=== PATIENT | male | born 2000 | race Caucasian/White ===

== ENCOUNTER 2018-02-01 17:25 | Emergency (ER) | payer MEDICAID ==
[~2018-02-01] VITALS: Ht 180.3 cm; Wt 72.6 kg
[2018-02-01 17:29] VITALS: BP 127/76
--- NOTE | 2018-02-01 17:38 | NUR ---
Patient ambulated to bed 3. RN evaluating patient at bedside.
--- NOTE | 2018-02-01 17:40 | NUR ---
17 YO M BIB MOTHER, WITHDRAWING OFF HEROIN. LAST USED 2 OR 3 DAYS AGO. WANTS TO MAKE SURE RIGHT ARM INJECTION SITE IS NOT INFECTED, PT MISSED THE VEIN WHILE INJECTING. BODY ACHES, SWEATS, N/V. 10/10 PAIN ACHING ALL OVER BODY. WILL CONTINUE TO MONITOR. MOTHER AT BEDSIDE. VSS . SAFETY PRECAUTIONS INITIATED.
[2018-02-01 18:03] VITALS: BP 127/76
--- NOTE | 2018-02-01 18:03 | NUR ---
Patient discharged with v/s stable. Written and verbal after care instructions given and explained. Patient alert, oriented and verbalized understanding of instructions. Ambulatory with steady gait. All questions addressed prior to discharge. ID band removed. Patient advised to follow up with PMD. Rx of KETOROLAC given. Patient educated on indication of medication including possible reaction and side effects. Opportunity to ask questions provided and answered.
== END 2018-02-01 18:03 | disposition home or self-care (01) ==
LOC: MED 17:25
DX: F19.11 Other psychoactive substance abuse, in remission (principal); Z88.1 Allergy status to other antibiotic agents
CPT/HCPCS: 99283

== ENCOUNTER 2018-10-16 17:52 | Emergency (ER) | payer MEDICAID ==
[~2018-10-16] VITALS: Ht 182.9 cm; Wt 79.6 kg
[2018-10-16 18:10] VITALS: BP 129/83
[2018-10-16] MEDS ORDERED: NEOMYCIN/POLYMYXIN/BACITRACIN 0.9 GM/1 PKT TP ONE (18:30)
[2018-10-16] MEDS ORDERED: CLINDAMYCIN 600 MG/4 ML VIAL IM ONE (18:30)
--- NOTE | 2018-10-16 18:55 | NUR ---
C/O ABCESS LIKE BUMP TO L WRIST X4 WEEKS. PT REPORTS IV HEROIN USE, STATES HE THINKS HE "MISSED" AND THATS WHAT CAUSED THE BUMP. DENIES N/V/D/FEVER. L WRIST HAS A REDDENED/SWOLLEN ABCESS LIKE BUMP. BED IN LOW POSITION, SIDE RAIL UP X1
[2018-10-16 19:20] VITALS: BP 125/86
--- NOTE | 2018-10-16 19:20 | NUR ---
Patient discharged with v/s stable. Written and verbal after care instructions given and explained. Patient alert, oriented and verbalized understanding of instructions. Ambulatory with steady gait. All questions addressed prior to discharge. ID band removed. Patient advised to follow up with PMD. Rx of CLINDAMYCIN, BACTRIM given. Patient educated on indication of medication including possible reaction and side effects. Opportunity to ask questions provided and answered.
== END 2018-10-16 19:20 | disposition home or self-care (01) ==
LOC: MED 17:52
DX: L02.414 Cutaneous abscess of left upper limb (principal); F11.10 Opioid abuse, uncomplicated; Z88.1 Allergy status to other antibiotic agents
CPT/HCPCS: 96372; 99283; J3490

== ENCOUNTER 2018-10-22 17:56 | Emergency (ER) | payer MEDICAID ==
[~2018-10-22] VITALS: Ht 180.3 cm; Wt 78.9 kg
[2018-10-22 18:08] VITALS: BP 119/71
--- NOTE | 2018-10-22 18:14 | NUR ---
PT AMBULATED TO ER BED 10
[2018-10-22 18:22] VITALS: BP 119/71
--- NOTE | 2018-10-22 18:25 | NUR ---
PT TO ED WITH C/O LEFT WRIST ABSCESS X 1 MONTH. PT REPORTS IV HEROIN ABUSE AND POSSIBLY MISSING A VEIN. PT SEEN IN ED X 6 DAYS AGO FOR SAME ISSUE GIVEN RX ABX WITH NO RELIEF. NO DRAINAGE FROM SITE. SITE IS REDDENED. PT PLACED INTO BED, PENDING MD FLANNERY.
--- NOTE | 2018-10-22 19:17 | NUR ---
RECEIVED REPORT FROM ROMA CANDELARIO.
--- NOTE | 2018-10-22 19:28 | NUR ---
PT STATES HE IS LEAVING BECAUSE HE HAS TO BE AT WORK THIS EVENING. PT LWBS. DR. DAUGHERTY MADE AWARE.
== END 2018-10-22 19:28 | disposition left against medical advice (07) ==
LOC: MED 17:56
DX: L02.414 Cutaneous abscess of left upper limb (principal); Z53.21 Procedure and treatment not carried out due to patient leaving prior to being seen by health care provider

== ENCOUNTER 2019-05-22 04:06 | Emergency (ER) | payer MEDICAID, OTHER ==
[~2019-05-22] VITALS: Ht 182.9 cm; Wt 78.1 kg
[2019-05-22 04:16] VITALS: BP 134/76
--- NOTE | 2019-05-22 04:30 | NUR ---
18 Y/O MALE PRESENTS TO ED, C/O RIGHT RING FINGER PAIN 01/19. PT STATES INJECTING HEROIN ON RIGHT RING FINGER THAT CAUSED ABSCESS. PT STATES HAVING DRAINAGE ON ABSCESS; NO DRAINAGE NOTED DURING ASSESSMENT. PT IS AFEBRILE. NO MEDICATION TAKEN PRIOR COMING TO ED. PT VSS. ERMD AWARE. WILL CONTINUE TO MONITOR.
[2019-05-22] MEDS ORDERED: SULFAMETH/TRIMETH DS 800/160MG 1 TAB PO ONE (04:35)
[2019-05-22] MEDS ORDERED: CEPHALEXIN 500 MG CAP PO ONE (04:35)
[2019-05-22 05:45] VITALS: BP 134/76
--- NOTE | 2019-05-22 05:45 | NUR ---
PT DISCHARGED WITH PAPERWORK. EDUCATED PT REGARDING MEDICATIONS AND D/C INSTRUCTIONS. PT VERBALIZED UNDERSTANDING OF TEACHING. TOLD PT TO FOLLOW UP WITH PCP AND WHEN TO RETURN TO ED. PT AT STABLE CONDITION. ALL QUESTIONS ANSWERED.
== END 2019-05-22 05:45 | disposition home or self-care (01) ==
LOC: MED 04:06
DX: L03.011 Cellulitis of right finger (principal); I10 Essential (primary) hypertension; Z88.0 Allergy status to penicillin; Z88.1 Allergy status to other antibiotic agents
CPT/HCPCS: 99283

== ENCOUNTER 2019-09-04 00:46 | Emergency (ER) | payer MEDICAID, OTHER ==
[~2019-09-04] VITALS: Ht 180.3 cm; Wt 74.8 kg
[2019-09-04 00:51] VITALS: BP 127/88
--- NOTE | 2019-09-04 00:58 | NUR ---
PT AMBULATED TO BED #4
--- NOTE | 2019-09-04 01:18 | NUR ---
RECEVIED A 18/M FROM TRIAGE WITH C/O BILATERAL ABSCESSES TO ARMS SECONDARY TO HEROIN USE. RED, RAISED AREAS OF SKIN NOTED WITH BLACK-COLORED TISSUE. DR RITCHIE AWARE. IN BED FOR [facility] [place]. NEGATIVE COVID SCREEEN.
[2019-09-04 01:37] VITALS: BP 127/88
--- NOTE | 2019-09-04 01:37 | NUR ---
Patient discharged with v/s stable. Written and verbal after care instructions given and explained. Patient alert, oriented and verbalized understanding of instructions. Ambulatory with steady gait. All questions addressed prior to discharge. ID band removed. Patient advised to follow up with PMD. Rx of KEFELX, BACTRIM given. Patient educated on indication of medication including possible reaction and side effects. Opportunity to ask questions provided and answered.
== END 2019-09-04 01:37 | disposition home or self-care (01) ==
LOC: MED 00:46
DX: L02.413 Cutaneous abscess of right upper limb (principal); L02.414 Cutaneous abscess of left upper limb; F12.90 Cannabis use, unspecified, uncomplicated; Z88.1 Allergy status to other antibiotic agents
CPT/HCPCS: 12001; 99283

== ENCOUNTER 2019-10-16 00:32 | Emergency (ER) | payer MEDICAID ==
[~2019-10-16] VITALS: Ht 180.3 cm; Wt 75.7 kg
[2019-10-16 00:48] VITALS: BP 110/69
[2019-10-16] MEDS ORDERED: AZITHROMYCIN 250 MG TAB PO ONE (01:05)
[2019-10-16] MEDS ORDERED: GENTAMICIN 80 MG/2 ML VIAL IM ONE ×2 (01:05→01:25)
--- NOTE | 2019-10-16 01:20 | NUR ---
COMING IN FOR RECHECK TO ABSESSES TO BILATERAL FOREARMS FROM IV HERION USE. WAS SEEN HERE 09/03 FOR SAME ISSUE, GIVEN PO ANTIBIOTICS AT THAT TIME. PT STATES HE WILL STILL SHOOT UP IN THE OPEN WOUNDS. PT HAS MULITIPLE TRACK JOSEPH TO BOTH ARMS. PT AFEBRILE, NO N/V, NO COUGH OR SOB. PT ALSO BEING SEEN FOR POSSIBLE STI, EX-GIRLFRIEND TOLD HIM SHE HAD A STI 3-4 WEEKS AGO. PT DENIES ANY SYMPTOMS. NO PAIN WITH URINATION, NO PENILE DISCHARGE. ALLERGIES - AMOX, CEPHSIL NO MED HX NO MEDS
--- NOTE | 2019-10-16 01:41 | NUR ---
URINE COLLECTED FOR CHLAMYDIA/GC TEST, SENT TO LAB.
[2019-10-16 01:44] VITALS: BP 110/69
--- NOTE | 2019-10-16 01:50 | NUR ---
Patient discharged with v/s stable. Written and verbal after care instructions given and explained. Patient verbalized understanding. Ambulatory with steady gait. All questions addressed prior to discharge. Advised to follow up with PMD.
[2019-10-19 07:14] LABS: CHLAMYDIA TRACHOMATIS AMP DNA Negative (Negative)
== END 2019-10-16 01:50 | disposition home or self-care (01) ==
LOC: MED 00:32
DX: L89.029 Pressure ulcer of left elbow, unspecified stage (principal); L89.019 Pressure ulcer of right elbow, unspecified stage; F17.210 Nicotine dependence, cigarettes, uncomplicated; A63.8 Other specified predominantly sexually transmitted diseases; Z88.1 Allergy status to other antibiotic agents
CPT/HCPCS: 87491; 96372; 99283; J1580; 36415

== ENCOUNTER 2019-12-28 21:20 | Emergency (ER) | payer MEDICAID ==
[~2019-12-28] VITALS: Ht 180.3 cm; Wt 74.8 kg
[2019-12-28 21:26] VITALS: BP 131/57
--- NOTE | 2019-12-28 21:33 | NUR ---
PT TAKEN TO [facility] WITH STEADY GAIT.
--- NOTE | 2019-12-28 21:33 | NUR ---
Jose angulo in [facility] - 12/28/19 at 2135 by KM PT TAKEN TO BED 11
--- NOTE | 2019-12-28 21:50 | NUR ---
ERMD AT BEDSIDE.
--- NOTE | 2019-12-28 22:31 | NUR ---
PT RETURN FROM XRAY
--- NOTE | 2019-12-28 23:25 | NUR ---
no nursing intervention ordered by RACHEAL Salvador
--- NOTE | 2019-12-28 23:26 | NUR ---
Patient discharged with v/s stable. Written and verbal after care instructions given and explained. Patient alert, oriented and verbalized understanding of instructions. Ambulatory with steady gait. All questions addressed prior to discharge. ID band removed. Patient advised to follow up with PMD. Rx of clindamycin, levaquin, narcan given. Patient educated on indication of medication including possible reaction and side effects. Opportunity to ask questions provided and answered.
== END 2019-12-28 23:26 | disposition left against medical advice (07) ==
LOC: MED 21:20
DX: M86.122 Other acute osteomyelitis, left humerus (principal); F41.9 Anxiety disorder, unspecified; F11.10 Opioid abuse, uncomplicated; Z88.1 Allergy status to other antibiotic agents
CPT/HCPCS: 73080; 99283

== ENCOUNTER 2020-04-13 20:46 | Emergency (ER) | payer MEDICAID, OTHER ==
[~2020-04-13] VITALS: Ht 182.9 cm; Wt 74.8 kg
[2020-04-13 21:00] VITALS: BP 124/75
--- NOTE | 2020-04-13 21:00 | NUR ---
TO BED # 05 AMBULATORY
--- NOTE | 2020-04-13 21:15 | NUR ---
PT PRESENTS TO THE ED TO HAVE LEFT WOUND IN HIS FOREARM EVALUATED. OPEN WOUND NOTED ON THE LEFT FOREARM, NO ACTIVE BLEEDING, SLIGHT SEROUS DRAINANGE NOTED, WOUND BED RED. PT REPORTS LAST IV DRUG USE OF HERIONE ABOUT A WEEK AGO. PT REPORTS TAKING KEFLEX PO. PT DENIES OTHER MEDICAL HX
--- NOTE | 2020-04-13 21:42 | NUR ---
PT BEING EVALUATED BY DR TO
[2020-04-13 22:08] VITALS: BP 124/75
--- NOTE | 2020-04-13 22:09 | NUR ---
Patient discharged with v/s stable. Written and verbal after care instructions given and explained. Patient alert, oriented and verbalized understanding of instructions. Ambulatory with steady gait. All questions addressed prior to discharge. ID band removed. Patient advised to follow up with PMD. Rx of KEFLEX AND BACTRIM given. Patient educated on indication of medication including possible reaction and side effects. Opportunity to ask questions provided and answered.
== END 2020-04-13 22:09 | disposition home or self-care (01) ==
LOC: MED 20:46
DX: L03.114 Cellulitis of left upper limb (principal); F11.90 Opioid use, unspecified, uncomplicated; Z88.0 Allergy status to penicillin; Z48.00 Encounter for change or removal of nonsurgical wound dressing
CPT/HCPCS: 99283

== ENCOUNTER 2020-09-17 00:09 | Emergency (ER) | payer OTHER ==
[~2020-09-17] VITALS: Ht 182.9 cm; Wt 74.8 kg
[2020-09-17 00:15] VITALS: BP 152/98
--- NOTE | 2020-09-17 00:15 | NUR ---
TO BED AMBULATORY
[2020-09-17 00:22] VITALS: BP 152/98
--- NOTE | 2020-09-17 00:22 | NUR ---
see complete assessment.
--- NOTE | 2020-09-17 00:25 | NUR ---
Dr. Gandara with pt for MSE.
[2020-09-17] MEDS ORDERED: CLINDAMYCIN 150 MG CAP ONE (00:27)
[2020-09-17] MEDS ORDERED: LIDOCAINE 2% 1000 MG/50 ML VIAL INJ ONE ×2 (00:27→00:30)
[2020-09-17] MEDS ORDERED: CLIN-178 PO ×2 (00:29→00:44)
[2020-09-17] MEDS ORDERED: IBUP-2218 PO ×2 (00:29→00:44)
[2020-09-17] MEDS ORDERED: CLINDAMYCIN 150 MG CAP PO ONE (00:30)
--- NOTE | 2020-09-17 00:54 | NUR ---
pt d/c with VSS. d/c education given to pt. opportunity to ask questions given and answered. rx of clindamycin and motrin given.
== END 2020-09-17 00:47 | disposition home or self-care (01) ==
LOC: MED 00:09
DX: K08.89 Other specified disorders of teeth and supporting structures (principal); Z88.1 Allergy status to other antibiotic agents; Z79.899 Other long term (current) drug therapy
CPT/HCPCS: 64400; 99284; J2001; 99283

== ENCOUNTER 2020-09-24 09:10 | Emergency (ER) | payer OTHER ==
[~2020-09-24] VITALS: Ht 180.3 cm; Wt 74.8 kg
[~2020-09-24 09:10] MED LIST: CLIN-178 PO; IBUP-2218 PO
[2020-09-24 09:16] VITALS: BP 137/79
[2020-09-24] MEDS ORDERED: NAPR-54 PO (09:34)
[2020-09-24] MEDS ORDERED: BUPIVACAINE-MPF 0.5% 30 ML VIAL INJ ONE (09:35)
[2020-09-24 09:58] VITALS: BP 137/79
== END 2020-09-24 09:59 | disposition home or self-care (01) ==
LOC: MED 09:10
DX: K02.9 Dental caries, unspecified (principal)
CPT/HCPCS: 64400; 99284; J3490

== ENCOUNTER 2021-01-23 21:40 | Emergency (ER) | payer OTHER ==
[~2021-01-23] VITALS: Ht 182.9 cm; Wt 81.2 kg
[~2021-01-23 21:40] MED LIST changes: -CLIN-178 PO; -IBUP-2218 PO; +NAPR-54 PO
[2021-01-23 21:49] VITALS: BP 130/83
--- NOTE | 2021-01-23 21:57 | NUR ---
Note [email or web address] in EDM - 01/23/21 at 2200 by [email or web address] PATIENT C/O ABDOMINAL DISCOMFORT X1D. +N. PATIENT ATE SOME "BAD FOOD". HAS BEEN TAKING PEIDALYTE. DIFFICULTY WITH BM. PATIENT ON ANTIBX. PMH DENIES ALLERGY: AMOXICILLIN, CEPHSIL
--- NOTE | 2021-01-23 22:00 | NUR ---
PATIENT TO THE BATHROOM FOR URINE COLLECTION
--- NOTE | 2021-01-23 22:00 | NUR ---
PATIENT TO LOBBY
--- NOTE | 2021-01-23 22:15 | NUR ---
PT AMBULATED TO BED 12.
[2021-01-23] MEDS ORDERED: ONDANSETRON 4 MG ODT PO ONE (22:35)
[2021-01-23] MEDS ORDERED: MIRABULK PO (22:37)
[2021-01-23] MEDS ORDERED: ONDA8TAB87 PO (22:37)
--- NOTE | 2021-01-23 23:00 | NUR ---
PT. IS A 20 Y/O MALE THAT CAME INTO ED WITH C/O OF NAUSEA. PT. STATES YESTERDAY HE ATE "BAD FOOD FROM [employer]." PT. STATES THAT HE HAS CONSTIPATION AND NAUSEA X 1 DAY. PT. ALSO STATES LOWER ABDOMINAL PAIN AND RATES IT AT 2/10 ON THE PAIN SCALE AT THIS TIME. WHEN ASKED TO DESCRIBE PAIN, PT. STATES "IT FEELS LIKE CRAMPING."
[2021-01-23 23:15] VITALS: BP 130/83
--- NOTE | 2021-01-23 23:15 | NUR ---
Patient discharged with v/s stable. Written and verbal after care instructions given and explained. Patient alert, oriented and verbalized understanding of instructions. Ambulatory with steady gait. All questions addressed prior to discharge. ID band removed. Patient advised to follow up with PMD. Rx of MIRALAX AND ZOFRAN given. Patient educated on indication of medication including possible reaction and side effects. Opportunity to ask questions provided and answered.
== END 2021-01-23 23:15 | disposition home or self-care (01) ==
LOC: MED 21:40
DX: K59.00 Constipation, unspecified (principal); F17.210 Nicotine dependence, cigarettes, uncomplicated; Z88.1 Allergy status to other antibiotic agents
CPT/HCPCS: 99283; Q0162

== ENCOUNTER 2022-11-01 20:44 | Emergency (ER) | payer MEDICAID, OTHER ==
[~2022-11-01] VITALS: Ht 182.9 cm; Wt 111.1 kg
[~2022-11-01 20:44] MED LIST changes: +MIRABULK PO; +ONDA8TAB87 PO
[2022-11-01 21:00] VITALS: BP 140/99
--- NOTE | 2022-11-01 21:10 | NUR ---
PT. WALKED TO BED 08
[2022-11-01 21:47] LABS: BASOPHILS # (AUTO) 0.1 K/uL (0.00-0.22); BASOPHILS % (AUTO) 0.7 % (0.0-2.0); EOSINOPHILS # (AUTO) 0.1 K/uL (0-0.4); EOSINOPHILS % (AUTO) 1.1 % (0.0-4.0); HEMATOCRIT 39.4 % (36-52); HEMOGLOBIN 13.6 g/dL (12.0-18.0); LYMPHOCYTES % (AUTO) 23.1 % (20.5-51.1); MEAN CORPUSCULAR HEMOGLOBIN 27 pg (27-31); MEAN CORPUSCULAR HGB CONC 35 g/dL (33-37); MEAN CORPUSCULAR VOLUME 78.7 fL (80-94); MONOCYTES # (AUTO) 0.8 K/uL (0.8-1.0); MONOCYTES % (AUTO) 9.2 % (1.7-9.3); NEUTROPHILS # (AUTO) 5.7 K/uL (1.8-7.7); NEUTROPHILS % (AUTO) 65.9 % (42.2-75.2); PLATELET COUNT (AUTO) 300 K/uL (140-450); RED BLOOD CELL COUNT(AUTO) 5.01 MIL/uL (4.20-6.10); RED CELL DISTRIBUTION WIDTH 13.9 % (11.6-13.7); WHITE BLOOD COUNT (AUTO) 8.7 K/uL (4.8-10.8)
--- NOTE | 2022-11-01 21:51 | NUR ---
BLOOD DRAWN AND SENT TO LAB.
[2022-11-01] MEDS ORDERED: ONDANSETRON 4 MG ODT PO ONE (22:05)
--- NOTE | 2022-11-01 22:10 | NUR ---
PT MEDICATED AND URINE COLLECTED. SENT TO LAB
[2022-11-01 22:25] LABS: ALBUMIN 3.7 g/dL (3.4-5.0); CARBON DIOXIDE 23.2 mmol/L (21-32); CREATININE 0.7 mg/dL (0.6-1.3); POTASSIUM 4.2 mmol/L (3.5-5.1); TOTAL BILIRUBIN 0.3 mg/dL (0.0-1.0)
[2022-11-01 22:37] LABS: BARBITURATE, URINE NEGATIVE ng/ml (NEG <=200); BENZODIAZEPINE, URINE NEGATIVE ng/mL (NEG <=200); CANNABINOID, URINE POSITIVE ng/mL (NEG <=50); COCAINE, URINE NEGATIVE ng/mL (NEG <=300); OPIATE, URINE NEGATIVE ng/mL (NEG <=2000); PHENCYCLIDINE SCREEN,URINE NEGATIVE ng/mL (NEG <=25)
[2022-11-01] MEDS ORDERED: ATA25 PO (23:55)
[2022-11-01] MEDS ORDERED: ONDA-188 SL (23:55)
[2022-11-02 00:08] VITALS: BP 128/82
--- NOTE | 2022-11-02 00:09 | NUR ---
Patient discharged with v/s stable. Written and verbal after care instructions given and explained. Patient alert, oriented and verbalized understanding of instructions. Ambulatory with steady gait. All questions addressed prior to discharge. ID band removed. Patient advised to follow up with PMD. Rx of ATARAX, ZOFRAN given. Patient educated on indication of medication including possible reaction and side effects. Opportunity to ask questions provided and answered.
== END 2022-11-02 00:09 | disposition home or self-care (01) ==
LOC: MED 20:44
DX: F41.9 Anxiety disorder, unspecified (principal); R11.2 Nausea with vomiting, unspecified; M79.10 Myalgia, unspecified site; Z88.1 Allergy status to other antibiotic agents; Z79.899 Other long term (current) drug therapy
CPT/HCPCS: 36415; 80053; 80305; 83690; 85025; 99283; Q0162